=== PATIENT | female | born 1950 | race Caucasian/White ===

== ENCOUNTER → 2019-02-28 11:02 | Outpatient (CLI) | payer MEDICARE, SELFPAY ==
--- NOTE | 2019-02-28 | DI.RAD.S_ITS ---
PROCEDURE: FL KNEE INJECTION MR/CT RT INDICATIONS: LOOSE BODY RIGHT KNEE TECHNIQUE: The indications, alternatives, benefits, risks, and complications of the procedure were explained to the patient. Written informed consent was obtained and placed in the chart. The knee was examined fluoroscopically, and a site chosen for knee joint injection. The skin was prepped and draped in a sterile fashion, and 1% Lidocaine infiltrated from the skin down to the articular surface. A hypodermic needle was then introduced into the joint and iodinated contrast media was instilled to confirm the intra-articular needle tip placement. This was followed by approximately 50 mL dilute solution of a gadolinium containing MR contrast agent. The needle was removed and a bandage was applied. An Des wrap was then applied around the knee joint to keep the contrast from collecting in the suprapatellar recess. The patient experienced no complications throughout the procedure and left the fluoroscopic suite in no apparent distress. FINDINGS: Single fluoroscopic spot image demonstrates intra-articular location to injected iodinated contrast. IMPRESSION: Successful fluoroscopically guided administration of dilute Gadolinium solution into the knee joint for MR arthrogram. Dictated by: Hilda Joseph M.D. on 02/28/2019 at 11:53 Approved by: Hilda Joseph M.D. on 02/28/2019 at 11:53
--- NOTE | 2019-02-28 | DI.MRI.S_ITS ---
PROCEDURE: MR KNEE RT W CON INDICATIONS: LOOSE BODY RIGHT KNEE TECHNIQUE: After the administration of 50 mL of dilute intra-articular Gadolinium contrast, sagittal T1 spin echo with fat saturation and PD fast spin echo with fat saturation, coronal T1 spin echo with and without fat saturation, coronal T2 fast spin echo with fat saturation, axial PD fast spin echo with fat saturation through the knee. COMPARISON: None. FINDINGS: Image quality: Excellent. Menisci: There is ill-defined degenerative tear involving the posterior horn and body of the medial meniscus. The lateral meniscus demonstrates normal morphology and internal signal. The meniscal root ligaments appear intact. Cruciate ligaments: The anterior and posterior cruciate ligaments appear intact. Medial structures: The medial collateral ligament appears intact. The posterior oblique ligament, semimembranosus tendon insertions, oblique popliteal ligament, and meniscocapsular junction appear intact. Visualized portions of the pes anserinus tendons appear normal. No abnormal bursal fluid. Lateral structures: The lateral collateral ligament, long and short heads of the biceps femoris tendon appear intact. The popliteus tendon appears normal; the popliteofibular ligament appears intact. The posterosuperior and anteroinferior popliteomeniscal fascicles appear intact. The arcuate and fabellofibular ligaments appear intact around the lateral inferior geniculate artery. Iliotibial band appears normal. Anterior structures: The quadriceps and patellar tendons appear intact. Patellar alignment is normal. No femoral trochlear dysplasia or ventral trochlear prominence. No edema in the infrapatellar fat pad. Bone and cartilage: No bone marrow contusions or fractures. There is tricompartmental cartilage thinning and fibrillation, most pronounced in the the patellofemoral compartment. Joint space: Small synovial cyst adjacent to the proximal tibiofibular joint. Normal appearing synovial plicae are incidentally noted. Suspect 3 small intra-articular bodies in the anterior superior lateral aspect of the knee joint (series 6 image 6 and 8). IMPRESSION: 1. 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 2. Chondromalacia patella. 3. Suspect 3 small intra-articular bodies in the anterior superior lateral aspect of knee joint. 4. A small synovial cyst adjacent to the proximal tibiofibular joint. Dictated by: Hilda Joseph M.D. on 02/28/2019 at 13:31 Approved by: Hilda Joseph M.D. on 02/28/2019 at 18:03
== END ==
PROVIDERS: PCP Naturopath; Visit Provider Orthopaedic Surgery
DX: M23.41 Loose body in knee, right knee (principal); M22.41 Chondromalacia patellae, right knee; M71.21 Synovial cyst of popliteal space [Baker], right knee; M23.221 Derangement of posterior horn of medial meniscus due to old tear or injury, right knee
CPT/HCPCS: 27369; 73722; 77002; A9579